=== PATIENT | female | born 1990 | race Caucasian/White ===

== ENCOUNTER 2017-02-13 21:08 | Inpatient (IN) | payer MEDICAID ==
[~2017-02-13] VITALS: Ht 153.7 cm; Wt 87.4 kg
[2017-02-13 21:21] VITALS: Ht 153.7 cm; Wt 87.4 kg
[2017-02-13 21:22] VITALS: BP 138/77; PULSE 68; RESP 18
[2017-02-13] MEDS ORDERED: FERR325C PO (21:24)
[2017-02-13] MEDS ORDERED: PRENAT PO (21:24)
[2017-02-13] MEDS ORDERED: LACTATED RINGER'S 1,000 ML IV SCH (22:24)
[2017-02-13] MEDS ORDERED: AMPICILLIN 2 GM/NS (PMX) 100 ML IV SCH (22:30)
[2017-02-13] MEDS ORDERED: BETAMET NA PHOS/AC(6 MG/ML) 5ML INJ IM ONE (22:30)
[2017-02-13] MEDS ORDERED: MISOPROSTOL 200 MCG TAB PR PRN (22:30)
[2017-02-13] MEDS ORDERED: CARBOPROST 250 MCG INJ IM PRN (22:30)
[2017-02-13] MEDS ORDERED: METHYLERGONOVINE 0.2 MG INJ IM PRN (22:30)
[2017-02-13] MEDS ORDERED: OXYTOCIN 30 UNITS/LR 500 ML IV PRN (22:30)
[2017-02-13] MEDS ORDERED: BETAMET NA PHOS/AC(6 MG/ML) 5ML INJ IM SCH (22:30)
[2017-02-13] MEDS ORDERED: OXYTOCIN 30 UNITS/LR 500 ML IV SCH (22:30)
[2017-02-13 22:45] LABS: BASOPHILS % 0.2 % (0.0-2.0); EOSINOPHILS % 0.5 % (0.0-7.0); HEMATOCRIT 33.1 % (37.0-47.0); HEMOGLOBIN 11.3 g/dl (12.0-16.0); LYMPHOCYTES # 1.3 10^3/ul (0.8-2.9); LYMPHOCYTES % 21.5 % (15.0-51.0); MEAN CORPUSCULAR HEMOGLOBIN 30.3 pg (29.0-33.0); MEAN CORPUSCULAR HGB CONC 34.1 g/dl (32.0-37.0); MEAN CORPUSCULAR VOLUME 88.7 fl (82.0-101.0); MEAN PLATELET VOLUME 11.5 fl (7.4-10.4); MONOCYTE # 0.4 10^3/ul (0.3-0.9); MONOCYTES % 7.1 % (0.0-11.0); NEUTROPHIL # 4.3 10^3/ul (1.6-7.5); NEUTROPHILS % 69.6 % (39.0-77.0); NUCLEATED RED BLOOD CELLS # 0.1 10^3/ul (0.0-0.0); NUCLEATED RED BLOOD CELLS% 0.8 /100WBC (0.0-0.0); PLATELET COUNT 149 10^3/UL (140-415); RED BLOOD COUNT 3.73 10^6/ul (4.20-5.40); RED CELL DISTRIBUTION WIDTH 15.4 % (11.5-14.5); WHITE BLOOD COUNT 6.2 10^3/ul (4.8-10.8)
[2017-02-13 22:49] LABS: INR 0.86; PROTIME 11.7 Sec (12.2-14.2); PT RATIO 0.9
[2017-02-13 22:50] LABS: PARTIAL THROMBOPLASTIN TIME 27.9 Sec (25.0-35.0)
--- NOTE | 2017-02-13 23:57 | RADRPT ---
PROCEDURE: ULTRASOUND OBSTETRICAL CLINICAL INDICATION: 27-year-old female with premature rupture of membranes for amniotic fluid index evaluation. TECHNIQUE: Multiple sonographic images of the pelvis were obtained. The images were reviewed on a PACS workstation. COMPARISON: No prior studies are available for comparison. FINDINGS: The cervix is not well visualized. There is a viable twin intrauterine gestation intrauterine gestat ion. TWIN A: Cardiac activity is present with 146 beats per minute. There is a breech presentation. The p lacenta is fundal. There is no evidence for an abruption or placenta previa. The amniotic fluid inde x equals 3.8 cm. TWIN B: Cardiac activity is present with 146 beats per minute. There is a vertex presentation. The p lacenta is fundal. There is no evidence for an abruption or placenta previa. The amniotic fluid inde x equals 4.9 cm. IMPRESSION: 1. Viable twin intrauterine gestations. 2. Decreased amniotic fluid index for both twins. .Sukhwinder Cunha MD, Date Time Electronically viewed and signed by .Sukhwinder Cunha MD, on 02/13/2017 23:57 .M/
[2017-02-14] VITALS (17 sets, daily range): BP systolic 106–155; BP diastolic 53–78; PULSE 79–95; RESP 16–20
[2017-02-14 00:02] LABS: ADD UMIC YES; UR ASCORBIC ACID 40 mg/dL (NEGATIVE); UR BILIRUBIN (Dip) NEGATIVE (NEGATIVE); UR BLOOD (Dip) NEGATIVE (NEGATIVE); UR CLARITY CLEAR (CLEAR); UR COLOR YELLOW (YELLOW); UR GLUCOSE (Dip) NEGATIVE (NEGATIVE); UR KETONES (Dip) NEGATIVE (NEGATIVE); UR LEUKOCYTE ESTERASE (Dip) TRACE Leu/ul (NEGATIVE); UR NITRITE (Dip) NEGATIVE (NEGATIVE); UR RBC 1 /HPF (0-5); UR SPECIFIC GRAVITY (Dip) 1.023 (1.003-1.030); UR SQUAMOUS EPITHELIAL CELL FEW /HPF (FEW); UR TOTAL PROTEIN (Dip) 2+ mg/dl (NEGATIVE); UR UROBILINOGEN (Dip) NEGATIVE (NEGATIVE)
--- NOTE | 2017-02-14 00:45 | HP ---
Date/Time of Note Date/Time of Note DATE: 02/14/17 TIME: 00:32 OB - History Hx of Present Free Text/Dictation 27 Year-old [id number] SIUP at 35 wks with twin gestation and previous C/S presents with a chief complaint of LOF at 19:00. She has been receiving her care with Dr. Cowan. She states good movement. She denies nausea , vomiting, shortness of breath, chest pain, headache, visual changes, vaginal bleeding. Care: Good Care Ultrasounds: Normal mid trimester US Obstetrical Complications: Other (Twin gestation, previous C/S) Medical Complications: None Past Family/Social History * Past Medical, Surgical, Family and Obstetric Histories reviewed from chart. Blood Type: O+ Rubella: immune RPR/VDRL: Negative GBS Status: Unknown HBsAG: Negative OB Admission Exam Vital Signs Vital Signs Vital Signs Date Time Temp Pulse Resp B/P Pulse Ox O2 Delivery O2 Flow Rate FiO2 02/13/17 21:22 98.4 68 18 138/77 Room Air Last 72 hours Lab Results CBC & BMP 02/13/17 22:12 OB Assessment/Plan Other plan: 27 Year-old [id number] SIUP at 35 wks with twin gestation, previous C/S and PPROM - FHR: No sign of metabolic acidosis- Category I - Continious EFM, toco - CBC, blood type and screen - U/A, U/C - OB us performed. Breech/ceph, SARAH of baby A: 3.8 and baby B: 4.9 - Analgesia options with R/B/A discussed in detail with patient - Please see the orders - O+/Rubella: Immune/GBS: unknown, ampicillin for GBS prophylaxis given risk of delivery including but not limited to bleeding, infection, injury to other organs (bowel, bladder, ureter, vessels, and nerves), injury to fetus, blood transfusion, blood transfusion related infection, risk of anesthesia, adhesion, needs for future , removal of uterus or any other indicated surgery was discussed with the patient and her family. She expressed understanding. All of her questions were answered. She signed the informed consent. PHYSICIAN'S VERIFICATION OF INFORMED CONSENT The patient was counseled regarding the procedure, its indications, risks, potential complications and alternatives and any questions were answered. Consent was obtained. PLANNED PROCEDURE/TREATMENT: delivery with possible vacuum/forceps delivery PHYSICIAN'S VERIFICATION OF INFORMED CONSENT FOR BLOOD TRANSFUSION There is a reasonable possibility that blood transfusion will be necessary as a result of the patient's procedure. I have discussed the following with the patient/patient's legal entry level sales representative: An explanation of the benefits and risks of the transfusion of blood or blood products and the possible alternatives. Al questions have been answered to the patient's/patients legal representatives satisfaction. INFORMED CONSENT: The patient has been informed of: - The nature of the proposed care, treatment, services, medications , interventions or procedures. - Potential benefits, risks or side effects, including potential problems related to recuperation. - The likelihood of achieving care treatment and service goals. - Reasonable alternatives to the proposed care, treatment and service. - The relevant risks, benefits and side effects related to alternatives, including the possible results of not receiving care, treatment and services. - When indicated, any limitations on the confidentiality of information learned from or about the patient. - If appropriate, the risks, benefits and alternatives of the drugs to be used for sedation/analgesia including moderate sedation. - If appropriate, patient has been provided information on the risks, benefits and alternatives to the transfusion of blood and/or blood products. - If appropriate, patient has been provided information regarding the [employer] Blood Act. SHIVA GARCIA Feb 14, 2017 00:45
[2017-02-14] MEDS ORDERED: AMPICILLIN 1 GM/NS (PMX) 50 ML IVPB SCH (01:00)
[2017-02-14] MEDS ORDERED: OXYTOCIN 30 UNITS/LR 500 ML IV SCH ×2 (01:00→03:33)
[2017-02-14] MEDS ORDERED: CEFAZOLIN 2 GM/50 ML (PMX) 50 ML IV SCH (01:00)
[2017-02-14] MEDS ORDERED: DEXAMETHASONE 4 MG/ML 1 ML INJ ONE (01:02)
[2017-02-14] MEDS ORDERED: KETOROLAC 30 MG INJ ONE (01:02)
[2017-02-14] MEDS ORDERED: ONDANSETRON 4 MG INJ ONE (01:02)
[2017-02-14] MEDS ORDERED: METOCLOPRAMIDE 10 MG INJ ONE (01:02)
[2017-02-14] MEDS ORDERED: morphine SULFATE/PF (10 MG/10 ML) INJ ONE (01:02)
[2017-02-14] MEDS ORDERED: OXYTOCIN 10 UNIT INJ ONE (01:02)
[2017-02-14] MEDS ORDERED: PHENYLephrine (100 MCG/ML) 5ML SYG ONE (01:02)
[2017-02-14] MEDS ORDERED: ONDANSETRON 4 MG INJ IV STA (01:08)
[2017-02-14] MEDS ORDERED: CITRIC ACID/NA CITRATE 30 ML CUP PO ONE (01:30)
[2017-02-14] MEDS ORDERED: morphine 2 MG INJ IV PRN (02:00)
[2017-02-14] MEDS ORDERED: NALBUPHINE HCL (10 MG/1 ML) INJ IV PRN ×2 (02:00→07:00)
[2017-02-14] MEDS ORDERED: HYDROmorphONE 1 MG/ML SYG IV PRN ×4 (02:00→07:00)
[2017-02-14] MEDS ORDERED: KETOROLAC 30 MG INJ IV PRN ×2 (02:00→07:00)
[2017-02-14] MEDS ORDERED: NALOXONE (0.4 MG/ML) INJ IV PRN (02:00)
[2017-02-14] MEDS ORDERED: morphine 4 MG/ML VIAL IV PRN (02:00)
[2017-02-14] MEDS ORDERED: ACETAMINOPHEN 500 MG TAB PO PRN (02:00)
[2017-02-14] MEDS ORDERED: ONDANSETRON 4 MG INJ IV PRN ×2 (02:00→07:00)
[2017-02-14] MEDS ORDERED: HYDROCODONE/APAP (5/325) TAB PO PRN (02:00)
[2017-02-14] MEDS ORDERED: DEXTROSE 5%-LR 1,000 ML IV SCH (03:33)
--- NOTE | 2017-02-14 03:33 | OPR ---
Operative Report Planned Procedure Free Text/Dictation 27 Year-old [id number] SIUP at 35 wks with twin gestation, previous C/S and PROM Procedure date Feb 14, 2017 Procedure(s) Repeat C/S Performed by see signature line Assisting provider: MJ CARDOZA MD Anesthesiologist: JOSE MANUEL DISLA MD Pre-procedure diagnosis 27 Year-old [id number] twin gestation, previous C/S and PROM Anesthesia Type: spinal Procedure Description Under satisfactory spinal anesthesia, the patient was prepped and draped and placed in a supine position, tilted to the left. Pfannenstiel incision was made , carried through the subcutaneous tissue. Bleeders brought under control with electrocautery. Fascia incised to the length of the incision. Rectus muscles from the fascia, divided midline. Peritoneum exposed, entered through a transverse incision. Exploration of abdomen revealed gravid uterus. Transverse incision was made in the lower segment of the uterus. Amniotic sac was already ruptured. Clear amniotic fluid noted. Nasal oropharyngeal suction was performed. The baby A was handed to the team for immediate attention. Then amniotic sac of baby B was ruptured. Clear amniotic fluid noted. Nasal oropharyngeal suction was performed. The baby B was handed to the team for immediate attention. The placenta was delivered manually intact. Uterine cavity was cleaned with wet sponge and drainage established. Uterus closed in 2 layers using O-vicryl in continuous fashion. Peritoneal cavity irrigated with warm saline. Sponge, needle and instrument count reported to be correct. Abdominal peritoneum closed with 2-0 vicryl continuously. Rectus muscle approximated with 2-0 vicryl. Fascia closed with 0-vicryl. Subcutaneous reapproximated with 3-0 vicryl.Skin closed with 4-0 monocryl. Estimated blood loss 600 mL. Urine bag contained 100 mL of clear urine Post-Procedure Post-procedure diagnosis 27 Year-old [id number] SIUP at 35 wks with twin gestation, previous C/S and PROM underwent repeat C/S Findings: Live Baby A: Female, Apgars 8 and 9, weight 5 lbs, wally breech presentation, 3V cord. Live Baby B: Male, Apgars 8 and 9, weight 6 lbs 13oz, cephalic presentation, 3V cord. Estimated blood loss: 250 - 300 ml's (600) Specimen(s): yes (see below) Specimen(s) description Placenta Complication(s): no Pt Condition post procedure: stable Disposition: other (Floor) Physician Certification I, the undersigned physician, hereby certify that I have discussed the procedure described in this consent form with this patient (or the patient's legal fraud representative), including: * The risk and benefits of the procedure; * Any adverse reactions that may reasonably be expected to occur; * Any alternative efficacious methods of treatment which may be medically viable ; * The potential problems that may occur during recuperation; * Potential for blood transfusion and associated risks/benefits; and * Any research or economic interest I may have regarding this treatment. I further certify that the patient/legally responsible person was encouraged to ask question and that all questions were answered. SHIVA GARCIA Feb 14, 2017 03:33
[2017-02-14] MEDS ORDERED: OXYTOCIN 30 UNITS/LR 500 ML IV PRN (04:00)
[2017-02-14] MEDS ORDERED: CARBOPROST 250 MCG INJ IM PRN (04:00)
[2017-02-14] MEDS ORDERED: METHYLERGONOVINE 0.2 MG TAB PO PRN (04:00)
[2017-02-14] MEDS ORDERED: METHYLERGONOVINE 0.2 MG INJ IM PRN (04:00)
[2017-02-14] MEDS ORDERED: LANOLIN 7 GM TUBE TOP PRN (04:00)
[2017-02-14] MEDS ORDERED: MISOPROSTOL 200 MCG TAB PR PRN (04:00)
[2017-02-14] MEDS ORDERED: OXYCODONE/ACETAMINOPHEN (5/325) TAB PO PRN (04:00)
[2017-02-14] MEDS ORDERED: MAGNESIUM SULFATE 4 GM/100 ML 100 ML IV ONE (05:30)
[2017-02-14] MEDS: DIPHENHYDRAMINE 50 MG INJ IV PRN ×2 (05:47→11:52)
[2017-02-14] MEDS: MAGNESIUM SULFATE 20 GM/500 ML 500 ML IV SCH ×2 (06:08→16:33)
[2017-02-14 06:53] LABS: ALBUMIN/GLOBULIN RATIO 0.96; BILIRUBIN,INDIRECT 0.2 mg/dl (0-1.1); BILIRUBIN,TOTAL 0.2 mg/dl (0.2-1.3); CALCIUM 8.6 mg/dl (8.4-10.2); CREATININE 0.43 mg/dl (0.44-1.00); POTASSIUM 4.7 mmol/L (3.5-5.1); TOTAL PROTEIN 6.1 g/dl (6.1-8.1); URIC ACID 5.6 mg/dl (3.1-7.9)
[2017-02-14] MEDS ORDERED: OXYTOCIN 30 UNITS/LR 500 ML BAG IV ONE (07:00)
[2017-02-14] MEDS ORDERED: LIDOCAINE 1% (MPF) 30 ML INJ ONE (08:50)
--- NOTE | 2017-02-14 09:08 | TRIAGE ---
OB Triage Datetime Report Generated by CPN: 02/14/2017 07:25 Datetime: 02/14/2017 05:47 Stage of : Recovery Datetime: 02/14/2017 05:36 Stage of : Recovery Datetime: 02/14/2017 05:09 Stage of : Labor Pain Presence: None/Denies Datetime: 02/14/2017 04:51 Stage of : Labor Pain Presence: None/Denies Datetime: 02/14/2017 04:25 Stage of : Labor Pain Presence: None/Denies Datetime: 02/14/2017 04:06 Stage of : Labor Pain Presence: None/Denies Datetime: 02/14/2017 03:51 Stage of : Labor Pain Presence: None/Denies Datetime: 02/14/2017 03:36 Stage of : Labor Pain Presence: None/Denies Datetime: 02/14/2017 03:21 Stage of : Labor Pain Presence: None/Denies Datetime: 02/14/2017 03:06 Stage of : Labor Temperature Route: Oral Pain Presence: None/Denies Datetime: 02/14/2017 01:17 Stage of : Labor Comments: MONITORS OFF, PT TRNAFER TO OR 2 VIA BED, COMPANY WITH RN. Datetime: 02/14/2017 01:10 Stage of : Labor Temperature Route: Oral Labor Evaluation Frequency: IRREGULAR Monitor Mode: External Duration (sec)2399: 50-60 Quality: Mild Pattern: Normal: <= 5 Contractions in 10 Minutes Resting Tone Salvo: Relaxed Heart Rate FHR Baseline Rate: 135 Monitor Mode: External US Variability: Moderate 6-25 bpm Accelerations: 15X15 Decelerations: None Category: Category I Datetime: 02/14/2017 00:41 Stage of : Labor Datetime: 02/14/2017 00:30 Stage of : Labor Labor Evaluation Frequency: IRREGULAR Monitor Mode: External Duration (sec)2399: 50-60 Quality: Mild Pattern: Normal: <= 5 Contractions in 10 Minutes Resting Tone Salvo: Relaxed Heart Rate FHR Baseline Rate: 125 Monitor Mode: External US Variability: Moderate 6-25 bpm Accelerations: 15X15 Decelerations: None Category: Category I Datetime: 02/14/2017 00:03 Stage of : Labor Labor Evaluation Frequency: IRREGULAR Monitor Mode: External Duration (sec)2399: 50-60 Quality: Mild Pattern: Normal: <= 5 Contractions in 10 Minutes Resting Tone Salvo: Relaxed Heart Rate FHR Baseline Rate: 135 Monitor Mode: External US Variability: Moderate 6-25 bpm Accelerations: 15X15 Decelerations: None Datetime: 02/13/2017 23:35 Stage of : Labor Labor Evaluation Frequency: IRREGULAR Monitor Mode: External Duration (sec)2399: 50-60 Quality: Mild Pattern: Normal: <= 5 Contractions in 10 Minutes Resting Tone Salvo: Relaxed Heart Rate FHR Baseline Rate: 135 Monitor Mode: External US Variability: Moderate 6-25 bpm Accelerations: 15X15 Decelerations: None Category: Category I Datetime: 02/13/2017 23:00 Assessment Type: Admission Assessment Vaginal Bleeding: None Maternal Assessment Level of Consciousness: Fully Conscious DTR's/Clonus: DTRs 2+; No Clonus Headache: Denies Blurred Vision: No Respiratory Effort: Unlabored; Regular Rhythm; Equal Expansion Breath Sounds, Left: Clear and Equal Breath Sounds, Right: Clear and Equal Nausea/Vomiting: Denies RUQ Epigastric Pain: Denies Lower Extremities Edema: Bilateral Lower Extremities Degree: Pitting Upper Extremities Edema: None Facial Edema: None Fall Risk Assessment History of Falling: (0) No Secondary Diagnosis: (0) No Ambulatory Aid: (0) Bedrest/Nurse Assist IV Therapy: (0) No Gait: (0) Normal/Bedrest/Immobile Mental Status: (0) Oriented to Own Ability Fall Score: 0 Fall Risk Score Definition: No Risk: No action required Labor Evaluation Frequency: IRREGULAR Duration (sec)2399: 50-70 Quality: Mild Pattern: Normal: <= 5 Contractions in 10 Minutes Resting Tone Salvo: Relaxed Heart Rate FHR Baseline Rate: 140 Variability: Moderate 6-25 bpm Accelerations: 15X15 Decelerations: None Category: Category I Pain Assessment Pain Scale: 4 Pain Presence: Intermittent Pain Type: Contraction Pain Location: Abdomen Pain Goal: 3 Vaginal Exam Membrane Status: Ruptured Membranes Ruptured Date/Time: 02/13/2017 19:00 Membranes Rupture Method: Spontaneous Amniotic Fluid Color: Clear Amniotic Fluid Amount: Small Amniotic Fluid Odor: None Nitrazine: Positive Datetime: 02/13/2017 22:24 Time of Arrival: 02/13/2017 23:00 EGA: 35.0 Arrived By: Ambulatory Datetime: 02/13/2017 21:59 Stage of : OB Triage Datetime: 02/13/2017 21:33 Vaginal Exam Membrane Status: Ruptured Membranes Ruptured Date/Time: 02/13/2017 19:00 Membranes Rupture Method: Spontaneous Amniotic Fluid Color: Clear Amniotic Fluid Odor: None Nitrazine: Positive Datetime: 02/13/2017 21:27 Amniotic Fluid Amount: Small Presentation 'A': Breech Datetime: 02/13/2017 21:17 Assessment Type: Triage Maternal Assessment Level of Consciousness: Fully Conscious DTR's/Clonus: DTRs 2+; No Clonus Headache: Frontal Blurred Vision: No Respiratory Effort: Unlabored; Regular Rhythm; Equal Expansion Breath Sounds, Left: Clear and Equal Breath Sounds, Right: Clear and Equal Nausea/Vomiting: Present (Annotations: Nausea only) RUQ Epigastric Pain: Denies Lower Extremities Edema: Bilateral Lower Extremities Degree: Pitting (Annotations: More on left leg) Upper Extremities Edema: None Degree: None Facial Edema: None Fall Risk Assessment History of Falling: (0) No Secondary Diagnosis: (0) No Ambulatory Aid: (0) Bedrest/Nurse Assist IV Therapy: (0) No Gait: (0) Normal/Bedrest/Immobile Mental Status: (0) Oriented to Own Ability Fall Score: 0 Fall Risk Score Definition: No Risk: No action required Datetime: 02/13/2017 21:08 Time of Arrival: 02/13/2017 20:54 EGA: 35.0 Arrived By: Wheelchair Arrived From: Home Chief Complaint: PROM @1900 then uc's started [id number] Movement: Present Contractions: Regular Time Contractions Began: 02/13/2017 19:00 Contractions: [id number] Rupture of Membranes: Ruptured Vaginal Bleeding: None Vaginal Discharge: Present Abdominal Trauma: Not Applicable Patient Complaints: Contractions; Cramping; Other Time Provider Notified: 02/14/2017 22:05 Provider Notified: Initial Plan: EFM x3, Nitrazine, VE
[2017-02-14] MEDS: OXYCODONE/ACETAMINOPHEN (5/325) TAB PO SCH ×3 (09:20→20:00)
[2017-02-14] MEDS: LACTATED RINGER'S 1,000 ML IV SCH ×2 (09:24→21:56)
[2017-02-14] MEDS: SENNA/DOCUSATE NA (8.6MG/50MG) TAB PO SCH ×2 (09:24→21:56)
--- NOTE | 2017-02-14 10:39 | NSTRPT ---
NST Information Datetime Report Generated by CPN: 02/14/2017 10:38 Datetime: 02/13/2017 09:55 NST Information EGA: 35.0 Test Number: 4 Time on Monitor: 02/13/2017 10:30 Time off Monitor: 02/13/2017 10:51 NST Duration (Min): 21 Reason for NST: Cholestasis; Multiple Gestation; Other Reason for NST Other: Twins, Di/Di, Test and Monitor Explained: Monitor Explained; Test Explained Pulse: 62 Resp: 16 SBP: 108 DBP: 61 Test Evaluation NST Interventions: None Patient States Movement: Present Contraction Frequency: x4, pt. denies FHR Baseline : 140 Variability: Moderate 6-25bpm Accelerations: 15X15 Decelerations: None FHR Category: Category I NST Results: Reactive Comments: To u/s, twin A transverse, mvp 3.9, twin B cephalic, mvp 4.1 1053-Pt home undelivered with PTL precautions, kick count instructions reviewed and follow up NST appt given. States understanding and denies further questions at this time. NST Baby B Patient States Movement: Present FHR Baseline: 135 Variability: Moderate 6-25bpm Accelerations: 15X15 Decelerations: None FHR Category: Category I NST Results: Reactive Electronically Signed By E-Signature: with User ID: [id number] Datetime: 02/10/2017 10:00 NST Information EGA: 34.4 Test Number: 3 Time on Monitor: 02/10/2017 10:52 Time off Monitor: 02/10/2017 11:53 NST Duration (Min): 61 Reason for NST: Cholestasis; Multiple Gestation; Other Reason for NST Other: Twins, Di/Di Test and Monitor Explained: Monitor Explained; Test Explained; Verbalized Understanding; Breastfee ding Info Given Pulse: 62 Resp: 18 SBP: 116 DBP: 62 Test Evaluation NST Interventions: Reposition Patient Patient States Movement: Present Contraction Frequency: NONE FHR Baseline : 135 Variability: Moderate 6-25bpm Accelerations: 15X15 Decelerations: None FHR Category: Category I NST Results: Reactive Comments: To Perinatology. TWIN A: SARAH 5.8cm. EFW: 5LBS 5OZ.37%, AC: 50%. BREECH, TWIN B: SARAH 6.3c m. EFW: 6LBS, 3OZ, 82%, AC: 95%, TRANSVERSE. 1205-Pt home undelivered with PTL precautions, kick count instructions reviewed and follow up NST appt given. States understanding and denies further questions at this time. NST Baby B Patient States Movement: Present FHR Baseline: 145 Variability: Moderate 6-25bpm Accelerations: 15X15 Decelerations: None FHR Category: Category I NST Results: Reactive Electronically Signed By E-Signature: with User ID: [id number] Datetime: 02/02/2017 13:16 NST Information EGA: 33.3 NST Duration (Min): 33 Datetime: 01/24/2017 14:16 NST Information EGA: 32.1 Datetime: 01/24/2017 13:35 NST Duration (Min): 39
[2017-02-15] VITALS (10 sets, daily range): BP systolic 114–136; BP diastolic 61–72; PULSE 58–79; RESP 18–21
[2017-02-15] MEDS: MAGNESIUM SULFATE 20 GM/500 ML 500 ML IV SCH (02:39)
[2017-02-15] MEDS: OXYCODONE/ACETAMINOPHEN (5/325) TAB PO SCH ×3 (04:25→19:43)
[2017-02-15] MEDS: SENNA/DOCUSATE NA (8.6MG/50MG) TAB PO SCH ×2 (09:03→20:49)
[2017-02-15] MEDS: LACTATED RINGER'S 1,000 ML IV SCH (11:10)
[2017-02-15 11:44] LABS: BASOPHILS % 0.1 % (0.0-2.0); EOSINOPHILS % 0.1 % (0.0-7.0); HEMATOCRIT 32.1 % (37.0-47.0); HEMOGLOBIN 10.6 g/dl (12.0-16.0); LYMPHOCYTES # 1.5 10^3/ul (0.8-2.9); LYMPHOCYTES % 19.1 % (15.0-51.0); MEAN CORPUSCULAR HEMOGLOBIN 29.9 pg (29.0-33.0); MEAN CORPUSCULAR VOLUME 90.4 fl (82.0-101.0); MEAN PLATELET VOLUME 10.8 fl (7.4-10.4); MONOCYTE # 0.4 10^3/ul (0.3-0.9); MONOCYTES % 5.6 % (0.0-11.0); NEUTROPHIL # 5.8 10^3/ul (1.6-7.5); NEUTROPHILS % 74.3 % (39.0-77.0); NUCLEATED RED BLOOD CELLS% 0.3 /100WBC (0.0-0.0); PLATELET COUNT 173 10^3/UL (140-415); RED BLOOD COUNT 3.55 10^6/ul (4.20-5.40); RED CELL DISTRIBUTION WIDTH 15.5 % (11.5-14.5); WHITE BLOOD COUNT 7.8 10^3/ul (4.8-10.8)
--- NOTE | 2017-02-15 16:40 | QN ---
Documentation Comment No complaint Afebrile VSS Abdomen soft POD #1 Stable Ambulate Advance diet. VISHAL HERNANDEZ MD Feb 15, 2017 16:40
[2017-02-16 04:30] VITALS: BP 132/71; PULSE 59; RESP 18
[2017-02-16] MEDS: OXYCODONE/ACETAMINOPHEN (5/325) TAB PO SCH ×3 (04:59→19:39)
[2017-02-16 08:00] VITALS: BP 142/72; PULSE 58; RESP 18
[2017-02-16] MEDS: SENNA/DOCUSATE NA (8.6MG/50MG) TAB PO SCH ×2 (09:00→20:47)
--- NOTE | 2017-02-16 14:00 | QN ---
Documentation Comment pod2 pt doing well vss exam wnl CDI a/p pod 2 continue care JOHN ROBLERO MD Feb 16, 2017 13:59
[2017-02-16 15:29] VITALS: BP 135/69; PULSE 64; RESP 16
[2017-02-16 20:00] VITALS: BP 136/78; PULSE 84; RESP 18
[2017-02-17] MEDS ORDERED: IBUPROFEN 800 MG TAB PO SCH ×2 (02:00→07:30)
[2017-02-17] MEDS: OXYCODONE/ACETAMINOPHEN (5/325) TAB PO SCH ×2 (03:47→12:00)
[2017-02-17 04:00] VITALS: BP 119/66; PULSE 58; RESP 18
[2017-02-17 08:10] VITALS: BP 129/69; PULSE 73; RESP 16
[2017-02-17] MEDS ORDERED: DIPHTH/TET/ACEL PERTUSS (ADULT) 0.5 ML VIAL IM* ONE (09:00)
[2017-02-17] MEDS ORDERED: MEASLES,MUMPS,RUBELLA VACCINE INJ SC* ONE (09:00)
[2017-02-17] MEDS: SENNA/DOCUSATE NA (8.6MG/50MG) TAB PO SCH (09:37)
--- NOTE | 2017-02-17 10:58 | PN ---
Date/Time of Note Date/Time of Note DATE: 02/17/17 TIME: 10:56 OB Subjective Subjective Subjective No complaints. Ready to go home. OB Objective Objective Objective Gen: NAD Abd: I-C/D/I OB Assessment/Plan Other Assessment: POD3 s/p Other plan: Discharge home with rx for pain meds. Pelvic rest and no heavy lifting. F/u with OB clinic for incision check and care. NARCISO ROOT Feb 17, 2017 10:58
--- NOTE | 2017-02-17 10:59 | DS ---
Date/Time of Note Date/Time of Note DATE: 02/17/17 TIME: 10:58 Obstetrical Discharge Record Final Diagnosis Final Diagnosis: delivered Section Section: Repeat Complications Other Rupture of Membranes: Yes Gestational Age at Rupture 35 weeks Condition on Discharge Physical Assessment Last Vitals: See PN Patient Condition: Good NARCISO ROOT Feb 17, 2017 10:59
== END 2017-02-17 14:50 | disposition home or self-care (01) | DRG 765 ==
LOC: OBT 21:08 → L-D 21:11 → OBT 22:20 → L-D 22:22 → PP1 02-14 06:41
PROVIDERS: ADMIT Obstetrics & Gynecology; ATTEND Obstetrics & Gynecology
PROC: 10D00Z1 Extraction of Products of Conception, Low, Open Approach (ICD-10-PCS; principal; 2017-02-14 02:00)
DX: O42.913 Preterm premature rupture of membranes, unspecified as to length of time between rupture and onset of labor, third trimester (principal); O30.043 Twin pregnancy, dichorionic/diamniotic, third trimester; O32.1XX1 Maternal care for breech presentation, fetus 1; O34.211 Maternal care for low transverse scar from previous cesarean delivery; Z37.2 Twins, both liveborn; Z3A.35 35 weeks gestation of pregnancy
CPT/HCPCS: 36415; 76815; 80053; 81001; 83735; 84560; 85025; 85610; 85730; 86592; 86850; 86900; 86901; 87086; 87340; 88307; 90715; 99464; G0463; J0690; J0702; J1100; J1200; J1885; J2274; J2370; J2405; J2590; J2765; J3475; J7120; J7121

== ENCOUNTER 2017-06-04 14:23 | Emergency (ER) | END 2017-06-04 17:20 | disposition home or self-care (01) ==